=== PATIENT | female | born 1975 | race African-American/Black ===

== ENCOUNTER 2021-02-03 17:59 | Emergency (ER) | payer OTHER ==
[~2021-02-03] VITALS: Ht 162.6 cm; Wt 88.5 kg
[2021-02-03] MEDS ORDERED: METH-406 PO (18:09)
[2021-02-03] MEDS ORDERED: HYDR-3980 PO (18:09)
[2021-02-03] MEDS ORDERED: FURO-151 PO (18:09)
--- NOTE | 2021-02-03 18:19 | NUR ---
at bedside for assessment
[2021-02-03] MEDS ORDERED: ACETAMINOPHEN 325 MG TABLET PO ONE (18:30)
[2021-02-03] MEDS ORDERED: MORPHINE SULFATE 4 MG/1 ML DISP.SYRIN IV ONE (18:30)
[2021-02-03] MEDS ORDERED: ACETAMINOPHEN 325 MG TABLET ONE (18:34)
[2021-02-03] MEDS ORDERED: MORPHINE SULFATE 4 MG/1 ML DISP.SYRIN ONE (18:34)
[2021-02-03 19:08] LABS: BASOPHILS % (AUTO) 0.2 % (0.0-2.0); EOSINOPHILS % (AUTO) 0.1 % (0.0-7.0); HEMATOCRIT 38.1 % (31.2-41.9); HEMOGLOBIN 11.9 g/dL (10.9-14.3); LYMPHOCYTES # (AUTO) 0.5 K/uL (20.0-40.0); LYMPHOCYTES % (AUTO) 6.6 % (20.5-51.5); MEAN CORPUSCULAR HEMOGLOBIN 27.8 uug (24.7-32.8); MEAN CORPUSCULAR HGB CONC 31 g/dL (32.3-35.6); MEAN CORPUSCULAR VOLUME 88.5 fL (75.5-95.3); MONOCYTES # (AUTO) 0.2 K/uL (2.0-10.0); MONOCYTES % (AUTO) 2.2 % (0.0-11.0); NEUTROPHILS # (AUTO) 7.1 K/uL (1.8-8.9); NEUTROPHILS % (AUTO) 90.9 % (38.5-71.5); PLATELET COUNT (AUTO) 309 K/uL (179-408); WHITE BLOOD COUNT (AUTO) 7.8 K/uL (3.8-11.8)
[2021-02-03 19:21] LABS: BILIRUBIN,TOTAL 0.4 mg/dL (0.2-1.0); CREATININE 0.8 mg/dL (0.6-1.3); TOTAL PROTEIN, SERUM 7.3 g/dL (6.4-8.2)
[2021-02-03 19:24] LABS: POTASSIUM 5.8 mmol/L (3.5-5.1)
[2021-02-03 20:06] LABS: CREATININE 0.9 mg/dL (0.6-1.3); POTASSIUM 4.7 mmol/L (3.5-5.1)
[2021-02-03 20:29] VITALS: BP 130/72
--- NOTE | 2021-02-03 20:29 | NUR ---
Patient discharged to home in stable condition. Written and verbal after care instructions given. Patient verbalizes understanding of instructions. Stressed follow up or return to ER for worsening s/s. Belongings with patient.
== END 2021-02-03 20:30 | disposition home or self-care (01) ==
LOC: ER 17:59
DX: R25.2 Cramp and spasm (principal); R79.89 Other specified abnormal findings of blood chemistry; Z88.0 Allergy status to penicillin; Z88.2 Allergy status to sulfonamides; Z88.8 Allergy status to other drugs, medicaments and biological substances; G25.81 Restless legs syndrome; G62.9 Polyneuropathy, unspecified; I50.9 Heart failure, unspecified; Z79.899 Other long term (current) drug therapy; Z82.49 Family history of ischemic heart disease and other diseases of the circulatory system; R03.0 Elevated blood-pressure reading, without diagnosis of hypertension
CPT/HCPCS: 36415; 80048; 80053; 82550; 85025; 93970; 96374; 99284; J2270; A4663